=== PATIENT | female | born 1930 | race Caucasian/White ===

== ENCOUNTER → 2018-02-07 | Outpatient (CLI) | payer MEDICARE ==
[~2018-02-07] MED LIST: ACETAM; Acetaminophen325 M1 PO; Benadryl25 MG PO; Bisac-Evac10 MG RC; DONE5 PO; Desyrel50 MG PO; FLONASE ALLERG9.9 ML; FLUT44OIA IH; GABA100 PO; HYDACE10B PO; HYDR1TAB94 PO; LEVSOD50 PO; LOPE2C PO; MIRT30 PO; Macrodantin100 MG PO; Milk Of Ma800 MG/5 M PO; Mirtazapine7.5 MG PO; Norco 5-325 Ta1 EACH PO; OLAN5 PO; PROM25 PO; SENN187 PO; TRAZ50 PO; Tamiflu75 MG PO; Vibramycin100 MG PO; Voltaren100 GM TOP
== END | disposition home or self-care (01) ==
LOC: LAB SHORT 09:14 → LAB 09:14
DX: R30.0 Dysuria (principal); F03.90 Unspecified dementia, unspecified severity, without behavioral disturbance, psychotic disturbance, mood disturbance, and anxiety
CPT/HCPCS: 87077; 87086; 87186

== ENCOUNTER → 2019-06-18 | Outpatient (CLI) | payer MEDICARE, OTHER | END | disposition home or self-care (01) | LOC: LAB SHORT 11:30 → LAB 11:30 | DX: R35.0 Frequency of micturition (principal) | CPT/HCPCS: 87086 ==